=== PATIENT | female | born 1960 | race African-American/Black ===

== ENCOUNTER 2020-01-20 10:13 | Emergency (ER) | payer BC ==
[~2020-01-20] VITALS: Ht 167.6 cm; Wt 90.0 kg
[~2020-01-20 10:13] MED LIST: ALLO300T2 PO; CYCL-1 PO; DOCU100C41 PO; HYDR-4353 PO; MONT10TA21 PO
[2020-01-20] MEDS ORDERED: normal saline 1000ML IV soln IVB ONE (10:55)
[2020-01-20 12:40] LABS: BASOPHILS % (AUTO) 0.3 % (0-1); EOSINOPHILS % (AUTO) 0.5 % (0-6); HEMATOCRIT 37.6 % (35.0-45.0); LYMPHOCYTES # (AUTO) 0.9 X10'3 (1.1-4.8); LYMPHOCYTES % (AUTO) 26.3 % (21-51); MEAN CORPUSCULAR HEMOGLOBIN 29.7 PG (27.0-31.0); MEAN CORPUSCULAR VOLUME 92.8 FL (78-98); MEAN PLATELET VOLUME 7.9 FL (7.4-10.4); MONOCYTES # (AUTO) 0.4 X10'3 (0-0.9); MONOCYTES % (AUTO) 10.6 % (2-12); NEUTROPHILS # (AUTO) 2.2 X10'3 (1.8-7.7); NEUTROPHILS % (AUTO) 62.3 % (42-75); PLATELET COUNT 196 X10'3 (140-440); RED BLOOD COUNT 4.05 X10'6 (4.20-5.60); RED CELL DISTRIBUTION WIDTH 15.9 % (11.5-14.5); WHITE BLOOD COUNT 3.5 X10'3 (4.5-11.0)
[2020-01-20 12:53] LABS: PARTIAL THROMBOPLASTIN TIME 27 SECONDS (22-32)
[2020-01-20 13:06] LABS: ALANINE AMINOTRANSFERASE 20 U/L (12-78); ALBUMIN 3.5 G/DL (3.4-5.0); ALBUMIN/GLOBULIN RATIO 0.9 (1.1-1.5); ALKALINE PHOSPHATASE 197 IU/L (46-116); ANION GAP 9 (8-16); ASPARTATE AMINO TRANSFERASE 23 U/L (10-37); BILIRUBIN,TOTAL 0.3 MG/DL (0.1-1.0); BLOOD UREA NITROGEN 7 MG/DL (7-18); BUN/CREATININE RATIO 9.3 (6.6-38.0); C-REACTIVE PROTEIN 1.51 MG/DL (0.0-0.5); CALCIUM 8.8 MG/DL (8.5-10.1); CHLORIDE 106 MMOL/L (99-107); CREATININE 0.75 MG/DL (0.40-0.90); GLUCOSE 85 MG/DL (70-104); LACTATE DEHYDROGENASE 194 U/L (81-234); MAGNESIUM 2.3 MG/DL (1.5-2.4); POTASSIUM 4.5 MMOL/L (3.5-5.1); SODIUM 143 MMOL/L (135-145); TOTAL CARBON DIOXIDE 27.9 MMOL/L (24-32); TOTAL PROTEIN 7.3 G/DL (6.4-8.2); eGFR > 90 ML/MIN
[2020-01-20 13:14] LABS: CLARITY,URINE CLEAR (Clear); COLOR,URINE YELLOW (Yellow); GLUCOSE, URINE NEGATIVE (Neg); KETONES,URINE NEGATIVE (Neg); LEUKOCYTE ESTERASE ,URINE NEGATIVE (Neg); NITRITES, URINE NEGATIVE (Neg); OCCULT BLOOD,URINE NEGATIVE (Neg); PH,URINE 5.5 (4.8-8.0); PROTEIN,URINE NEGATIVE (Neg); UROBILINOGEN,URINE 0.2 E.U/dL (0.2-1.0)
[2020-01-20 13:16] LABS: UA COLLECTION TYPE CLN CATCH MIDSTREAM
[2020-01-20 14:02] VITALS: BP 122/84
== END 2020-01-20 14:04 | disposition home or self-care (01) ==
LOC: ER 10:14
DX: R53.1 Weakness (principal); R11.0 Nausea; R05 Cough; Z20.828 Contact with and (suspected) exposure to other viral communicable diseases; G89.29 Other chronic pain; M10.9 Gout, unspecified; Z98.890 Other specified postprocedural states; Z79.899 Other long term (current) drug therapy
CPT/HCPCS: 36415; 71045; 80053; 81003; 83605; 83615; 83735; 84145; 85025; 85610; 85730; 86140; 87040; 93005; 99285; U0003

== ENCOUNTER 2021-01-27 20:07 | Emergency (ER) | payer BC ==
[~2021-01-27] VITALS: Ht 170.2 cm; Wt 85.0 kg
[2021-01-27 20:31] VITALS: BP 130/90
== END 2021-01-27 23:00 | disposition left against medical advice (07) ==
LOC: ER 20:08
DX: R20.2 Paresthesia of skin (principal); Z53.21 Procedure and treatment not carried out due to patient leaving prior to being seen by health care provider

== ENCOUNTER 2021-01-29 17:00 | Emergency (ER) | payer BC ==
[~2021-01-29] VITALS: Ht 170.2 cm; Wt 92.2 kg
[2021-01-30 00:19] VITALS: BP 134/57
== END 2021-01-30 00:20 | disposition home or self-care (01) ==
LOC: ER 17:02
DX: M25.571 Pain in right ankle and joints of right foot (principal); G89.29 Other chronic pain; M25.471 Effusion, right ankle; M10.9 Gout, unspecified; Z98.890 Other specified postprocedural states; Z79.899 Other long term (current) drug therapy
CPT/HCPCS: 99281

== ENCOUNTER 2021-09-29 14:37 | Emergency (ER) | payer BC ==
[~2021-09-29] VITALS: Ht 167.6 cm; Wt 94.2 kg
[2021-09-29 15:41] LABS: BASOPHILS % (AUTO) 0.3 % (0-1); EOSINOPHILS # (AUTO) 0.2 X10'3 (0-0.9); EOSINOPHILS % (AUTO) 2.5 % (0-6); HEMATOCRIT 37.2 % (35.0-45.0); HEMOGLOBIN 12.2 g/dl (12.0-16.0); LYMPHOCYTES # (AUTO) 1.3 X10'3 (1.1-4.8); LYMPHOCYTES % (AUTO) 16.4 % (21-51); MEAN CORPUSCULAR HEMOGLOBIN 29.6 PG (27.0-31.0); MEAN CORPUSCULAR HGB CONC 32.9 g/dL (33.0-36.5); MEAN CORPUSCULAR VOLUME 90.1 FL (78-98); MEAN PLATELET VOLUME 7.9 FL (7.4-10.4); MONOCYTES # (AUTO) 0.4 X10'3 (0-0.9); MONOCYTES % (AUTO) 4.8 % (2-12); NEUTROPHILS # (AUTO) 6.1 X10'3 (1.8-7.7); PLATELET COUNT 287 X10'3 (140-440); RED BLOOD COUNT 4.13 X10'6 (4.20-5.60); RED CELL DISTRIBUTION WIDTH 15.9 % (11.5-14.5)
[2021-09-29 15:54] LABS: ALANINE AMINOTRANSFERASE 27 U/L (12-78); ALBUMIN 3.7 G/DL (3.4-5.0); ALKALINE PHOSPHATASE 185 IU/L (46-116); ANION GAP 11 (8-16); ASPARTATE AMINO TRANSFERASE 22 U/L (10-37); BILIRUBIN,TOTAL 0.4 MG/DL (0.1-1.0); BLOOD UREA NITROGEN 8 MG/DL (7-18); BUN/CREATININE RATIO 10.5 (6.6-38.0); CALCIUM 9.1 MG/DL (8.5-10.1); CHLORIDE 107 MMOL/L (99-107); CREATININE 0.76 MG/DL (0.40-0.90); GLUCOSE 107 MG/DL (70-104); POTASSIUM 3.7 MMOL/L (3.5-5.1); SODIUM 146 MMOL/L (135-145); TOTAL CARBON DIOXIDE 28.3 MMOL/L (24-32); TOTAL PROTEIN 7.5 G/DL (6.4-8.2); eGFR > 90 ML/MIN
[2021-09-29 17:04] LABS: CLARITY,URINE CLEAR (Clear); COLOR,URINE YELLOW (Yellow); GLUCOSE, URINE NEGATIVE (Neg); KETONES,URINE NEGATIVE (Neg); LEUKOCYTE ESTERASE ,URINE MODERATE (Neg); NITRITES, URINE NEGATIVE (Neg); OCCULT BLOOD,URINE TRACE-INTACT (Neg); PH,URINE 5.5 (4.8-8.0); PROTEIN,URINE NEGATIVE (Neg); UROBILINOGEN,URINE 0.2 E.U/dL (0.2-1.0)
[2021-09-29 17:20] LABS: UA COLLECTION TYPE CLN CATCH MIDSTREAM
[2021-09-29 17:30] LABS: BACTERIA,URINE 1+ /HPF (Neg); MUCUS STRANDS FEW /LPF (Neg); RBC,URINE NONE SEEN /HPF (0-2); SQUAMOUS EPITHELIAL CELL,UR MODERATE /LPF (FEW)
[2021-09-29] MEDS ORDERED: CEPH250T PO (17:37)
[2021-09-29 17:45] VITALS: BP 119/74
== END 2021-09-29 17:54 | disposition home or self-care (01) ==
LOC: ER 14:37
DX: N39.0 Urinary tract infection, site not specified (principal); G89.29 Other chronic pain; M54.9 Dorsalgia, unspecified
CPT/HCPCS: 36415; 76856; 80053; 81001; 85025; 87077; 87088; 87186; 99284

== ENCOUNTER 2021-10-27 14:51 | Emergency (ER) | payer BC ==
[~2021-10-27] VITALS: Ht 167.6 cm; Wt 89.1 kg
--- NOTE | 2021-10-27 16:10 | NUR ---
No pt in room.
--- NOTE | 2021-10-27 16:20 | NUR ---
Pt obtained UA. Sent to lab.
[2021-10-27 16:38] LABS: CLARITY,URINE CLOUDY (Clear); COLOR,URINE YELLOW (Yellow); GLUCOSE, URINE NEGATIVE (Neg); KETONES,URINE NEGATIVE (Neg); LEUKOCYTE ESTERASE ,URINE MODERATE (Neg); NITRITES, URINE NEGATIVE (Neg); OCCULT BLOOD,URINE LARGE (Neg); PROTEIN,URINE NEGATIVE (Neg); UROBILINOGEN,URINE 0.2 E.U/dL (0.2-1.0)
[2021-10-27 16:43] LABS: UA COLLECTION TYPE CLN CATCH MIDSTREAM
[2021-10-27 16:44] LABS: MUCUS STRANDS MODERATE /LPF (Neg)
[2021-10-27 16:45] LABS: BACTERIA,URINE 1+ /HPF (Neg); WBC,URINE 0-4 /HPF (0-4)
[2021-10-27 16:46] LABS: SQUAMOUS EPITHELIAL CELL,UR MANY /LPF (FEW)
--- NOTE | 2021-10-27 17:47 | NUR ---
Insufficient amount for culture of UA, pt to bathroom to collect 2nd sample if needed.
[2021-10-27 18:18] VITALS: BP 139/91
== END 2021-10-27 18:20 | disposition home or self-care (01) ==
LOC: ER 14:51
DX: R31.29 Other microscopic hematuria (principal); R10.84 Generalized abdominal pain; G89.29 Other chronic pain; M10.9 Gout, unspecified; Z87.440 Personal history of urinary (tract) infections; Z98.890 Other specified postprocedural states; Z79.899 Other long term (current) drug therapy
CPT/HCPCS: 81001; 99283

== ENCOUNTER 2021-12-18 10:01 | Emergency (ER) | payer BC ==
[~2021-12-18] VITALS: Ht 167.6 cm; Wt 88.6 kg
[2021-12-18 10:22] VITALS: BP 133/84
[2021-12-18] MEDS ORDERED: ibuprofen 200mg tablet PO ONE (10:40)
== END 2021-12-18 11:41 | disposition home or self-care (01) ==
LOC: ER 10:02
DX: S20.214A Contusion of middle front wall of thorax, initial encounter (principal); G89.29 Other chronic pain; M54.9 Dorsalgia, unspecified; V98.8XXA Other specified transport accidents, initial encounter; Y93.89 Activity, other specified; Y92.89 Other specified places as the place of occurrence of the external cause; Y99.8 Other external cause status
CPT/HCPCS: 71045; 72170; 99284

== ENCOUNTER 2024-10-03 14:38 | Emergency (ER) | payer BC ==
[~2024-10-03] VITALS: Ht 167.6 cm; Wt 88.6 kg
[~2024-10-03 14:38] MED LIST changes: +MONT-47 PO; -MONT10TA21 PO
[2024-10-03 15:02] VITALS: BP 165/104; PULSE 92; RESP 18; O2SAT 100
[2024-10-03 17:43] VITALS: TEMP 97.6
== END 2024-10-03 17:43 | disposition home or self-care (01) ==
LOC: ER 14:39
DX: M54.59 Other low back pain (principal); G89.29 Other chronic pain; M54.9 Dorsalgia, unspecified; Z79.899 Other long term (current) drug therapy; Z98.890 Other specified postprocedural states
CPT/HCPCS: 99282